=== PATIENT | male | born 1980 | race Caucasian/White ===

== ENCOUNTER 2020-01-07 07:03 | Emergency (ER) | payer OTHER, SELFPAY ==
[2019-08-23 11:28] VITALS: BMI 35.9
[2020-01-07 07:04] VITALS: BP 173/107; PULSE 81; RESP 16; TEMP 36.4; O2SAT 98; BMI 37.3
--- NOTE | 2020-01-07 07:23 | RAD_ITS ---
STUDY: X-RAY - LEFT KNEE REASON FOR EXAM: Male, 39 years old. FELT A POP IN HIS KNEE. DIFFICULT TO BARE WEIGHT TECHNIQUE: 4 view(s) of the knee. COMPARISON: None. FINDINGS: Normal visualized distal femur. Normal visualized proximal tibia and fibula. Normal proximal tibiofibular articulation. Normal medial femorotibial compartment. Normal lateral femorotibial compartment. Normal patellofemoral articulation. Calcified body lateral to the patella. The soft tissue structures are unremarkable. RAD/Knee 4 or More Views IMPRESSION: 1. No acute fracture or dislocation. 2. Calcified body lateral to the patella. However, no severe arthrosis. Electronically Signed: Molina Card MD at 7:53 EST Tel , Service support ,
--- NOTE | 2020-01-07 07:24 | ED.VISSUMM ---
- ER Visit Summary Date of Service: 01/07/20 Chief Complaint: [Pain to the left knee] History of Present Illness: The patient is a 39 M [presents to the emergency department complaint of pain in his left knee. Patient states that he had some mild discomfort at start about 4 days ago. He cannot think of any injury or trauma. He did ride a bike at the gym but he is not sure if that is related. Yesterday he was getting into his truck and he felt a pop in the left knee. Patient did note some swelling about the knee yesterday. Today's have a hard time bearing weight secondary the pain. Patient has no medical history otherwise.] Physical Examination: [HEENT-PERRLA, EOMI. Cranial nerves II through XII grossly intact. TMs clear. Mucous membranes moist. No adenopathy. Cardiovascular-regular rate and rhythm without murmur or ectopy Lungs-clear to auscultation, chest wall stable without crepitus or subcu emphysema Abdomen-normoactive bowel sounds, soft, nontender, no rebound or rigidity, no peritoneal signs. Extremities-intact ?4, normal range of motion, normal pulses, atraumatic. Left knee-no obvious effusion noted. He is got good range of motion flexion extension. Negative anterior and posterior drawer test. No laxity noted with varus or valgus stress. Patient does have some pain medially and laterally with Lockman's test.] Test Results: [X-rays of the left knee showed a calcified body lateral to the patella. However no severe arthrosis. No acute fracture dislocation noted.] Emergency Department Course and Treatment: [] Treatment Plan: [Patient will be given crutches and a knee immobilizer. Patient will be referred to orthopedics for follow-up.] Disposition: [Discharged home in stable condition] Impression: [Left knee sprain-possible internal derangement] This note was generated with [employer] dictation software. It may contain incorrect words, spelling, and punctuation that were not noted in review of the chart prior to signing ED Disposition - Plan for ED Patient: Referrals: Raad Mehta MD [Primary Care Provider] -
--- NOTE | 2020-01-07 08:04 | ED.DEP ---
ED Disposition - Plan for ED Patient: Instructions: KNEE PAIN, Meniscus Injury (Possible) Referrals: Raad Mehta MD [Primary Care Provider] - Kisha Santos DO [STAFF PHYSICIAN] - 3-5 Days
== END 2020-01-07 08:23 | disposition home or self-care (01) ==
PROVIDERS: Emergency Provider Emergency Medicine; PCP Family Medicine
DX: S83.92XA Sprain of unspecified site of left knee, initial encounter (principal)
CPT/HCPCS: 73564; 99284

== ENCOUNTER → 2020-01-20 06:17 | Outpatient (CLI) | payer OTHER, SELFPAY ==
[2020-01-12 13:49] VITALS: BMI 37.3
[2020-01-16 10:00] VITALS: BMI 37.3
--- NOTE | 2020-01-20 06:18 | MRI_ITS ---
STUDY: MRI LEFT KNEE REASON FOR EXAM: Left knee pain status post twisting injury 2 weeks ago. TECHNIQUE: Standardized fat and water weighted pulse sequences were obtained in all 3 orthogonal planes. COMPARISON: Radiographs 01/07/2020. FINDINGS: There is a small radial tear at the root of the posterior horn of the medial meniscus (T2 coronal images 13; proton density sagittal image 20) with slight subchondral bone edema of the posterior mesial aspect of the medial tibial plateau. There is a small chondral tear of the posterior aspect of the medial femoral condyle (T2 sagittal image 10). Normal medial collateral ligamentous complex (MCL). Normal distal semimembranosus, gracilis and semitendinosus tendons. Normal lateral meniscus. Normal hyaline cartilage of the lateral femorotibial compartment. Normal lateral femoral condyle and tibial plateau. Normal proximal tibiofibular articulation. Normal lateral collateral (fibular) ligament. Normal popliteus tendon. Normal biceps femoris tendon. Normal anterior cruciate ligament (ACL). Normal posterior cruciate ligament (PCL). Normal congruent patellofemoral articulation. There is chondral tearing with delamination of the medial patellar facet (T2 axial images 9, 10). There is a chondral tear of the apex of the femoral trochlea (T2 sagittal images 13, 14). Normal medial and lateral patellar retinaculum. Normal visualized quadriceps tendon. Normal patellar tendon. There is mild edema in the posterior superior aspect of Hoffa''s fat pad (T2 sagittal images 13, 14). There is a small to moderate-sized joint effusion. There is a thin medial patellar plica. The soft tissues are unremarkable. There is a bipartite patella (proton density coronal images 27, 28) with slight bone edema adjacent to the synchondrosis (T2 coronal image 28). There is a bone island in the medial femoral condyle. MRI/Lower Ext Joint Only (Routine) IMPRESSION: Small radial tear at the root of the posterior horn of the medial meniscus. Chondral tears of the medial patellar facet, apex of the femoral trochlea and medial femoral condyle. Mild edema in Hoffa''s fat pad. Joint effusion. Bipartite patella. Electronically Signed: Juan Denise MD at 7:39 EST Tel , Service support ,
== END ==
PROVIDERS: PCP Family Medicine; Referring Provider Physician Assistant; Visit Provider Physician Assistant
DX: S89.92XA Unspecified injury of left lower leg, initial encounter (principal); M25.562 Pain in left knee; M25.362 Other instability, left knee
CPT/HCPCS: 73721